=== PATIENT | male | born 1945 ===

== ENCOUNTER 2025-08-04 12:58 | Emergency (ER) | payer OTHER, SELFPAY ==
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
--- NOTE | ~2025-08-04 | CT_ITS ---
EXAMINATION: CT CERVICAL SPINE WITHOUT IV CONTRAST CLINICAL INFORMATION: Fall COMPARISON: None available. TECHNIQUE: CT of the cervical spine was obtained without administration of intravenous contrast. Images were reconstructed in axial, sagittal and coronal planes. This CT examination was performed using dose optimization techniques as appropriate, variously including the following: *Automated exposure control *Adjustment of mA and/or kV according to patient size (this includes techniques or standardized protocols for targeted exams where dose is matched to indication/reason for exam; i.e. extremities or head) *Use of iterative reconstruction technique FINDINGS: Motion limits evaluation of the soft tissues anterior of the cervical spine. Alignment: Straightening of the cervical spine with ossification of the posterior longitudinal ligament and bridging anterior marginal osteophytes at multiple levels. Vertebrae: No compression fracture. Disc spaces: Calcification of multiple intervertebral discs from C3-C4 down to C6-C7 level. Craniovertebral junction: Alignment is normal. No fracture. Soft tissues: Posterior paraspinal soft tissues are unremarkable. 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 CT/CT cervical spine wo IV con IMPRESSION: No acute fracture or subluxation. Electronically signed by: Miguel Angel Golden MD 08/04/2025 03:06 PM [facility]
--- NOTE | ~2025-08-04 | XR_ITS ---
EXAMINATION: XR PELVIS CLINICAL INFORMATION: fall COMPARISON: None available. TECHNIQUE: AP view of the pelvis. FINDINGS: Solitary AP view of the pelvis demonstrates no definitive fracture or dislocation. There is normal alignment of both hip joints. Mild degenerative changes in both hip joints are present with superolateral acetabular spurring. The trochanters appear intact with mild enthesopathic spurring. The pubic rami and symphysis appear intact. The sacral arches appear intact. Degenerative changes of both SI joints are present. There are degenerative changes in the lower lumbar spine with associated mild levoconvex scoliosis. Soft tissues appear normal aside from diffuse vascular calcifications. XR/XR pelvis 1-2V IMPRESSION: 1. No definite bony fracture or dislocation. 2. Diffuse vascular calcifications. Electronically signed by: Jeevan Martin MD 08/04/2025 05:03 PM [facility] ARCEO
--- NOTE | ~2025-08-04 | XR_ITS ---
EXAMINATION: XR FEMUR, RIGHT CLINICAL INFORMATION: fall COMPARISON: None available. TECHNIQUE: AP and lateral views of the right femur were obtained. FINDINGS: No definite fracture, dislocation, or suspicious bone lesion. Mild degenerative changes present in the right hip joint and right knee joint. There is no significant knee joint effusion on the lateral projection. Soft tissues demonstrate diffuse vascular calcifications. XR/XR femur RT 2V IMPRESSION: 1. No acute bony fracture or dislocation. 2. Diffuse vascular calcifications. Electronically signed by: Jeevan Martin MD 08/04/2025 05:08 PM [facility]
--- NOTE | ~2025-08-04 | CT_ITS ---
EXAMINATION: CT HEAD WITHOUT IV CONTRAST HISTORY: fall. TECHNIQUE: Unenhanced helical CT of the head was performed per standard departmental protocol. Coronal and sagittal reformats of the head were also evaluated. One or more of the following techniques was used for dose reduction: Automated exposure control, adjustment of the mA and/or kV according to patient size, use of iterative reconstruction technique. DLP: 663 mGy-cm COMPARISON: There are no prior studies available for comparison. FINDINGS: BRAIN: There is diffuse prominence of the ventricular system and cortical sulci, consistent with atrophy. Periventricular and subcortical white matter hypodensities are noted which are nonspecific, but often seen in the setting of small vessel ischemic disease. There is no mass effect or midline shift. No intra- or extra-axial fluid collections are identified. SINUSES: The visualized paranasal sinuses are clear. The mastoid air cells and middle ear cavities are well pneumatized. ORBITS: The visualized orbits are unremarkable. BONES/SOFT TISSUES: The extracranial soft tissues are unremarkable. The calvarium is intact. No suspicious lytic or sclerotic lesions. CT/CT head/brain wo IV con IMPRESSION: No acute intracranial abnormality. Electronically signed by: Xander Blankenship MD 08/04/2025 02:59 PM [facility]
--- NOTE | 2025-08-04 13:05 | ECG_ITS ---
Test Reason : fall Blood Pressure : */* mmHG Vent. Rate : 104 BPM Atrial Rate : 104 BPM P-R Int : 158 ms QRS Dur : 78 ms QT Int : 336 ms P-R-T Axes : 55 52 39 degrees QTcB Int : 441 ms Sinus tachycardia Otherwise normal ECG No previous ECGs available Referred By: Generic ED Physician Electronically Signed By: RYLIE BARRAZA
[2025-08-04 13:14] VITALS: BP 106/80; BP 110/76; PULSE 112; PULSE 98; RESP 18; TEMP 36.6; O2SAT 96; O2SAT 98; BMI 28.3
--- NOTE | 2025-08-04 13:14 | ED_ITS ---
HPI - General Adult General Chief complaint: Fall Stated complaint: fall, no loc/head strike/thinners Time Seen by Provider: 08/04/25 13:07 Source: patient, family and EMS Mode of arrival: ambulatory Limitations: no limitations History of Present Illness ED Provider: ROSEMARIE VILLALTA PA-C HPI narrative: 79 year old male with pmhx significant for DM presents to the ED today via EMS for evaluation s/p unwitnessed fall at his daycare facility today. Family member (nephew) at bedside to translate. Per staff at facility, patient fell back into his chair while attempting to stand out of his chair, when the chair slid out from under him, causing him to fall backward. Staff heard him fall and entered the room immediately. Patient denied head strike/LOC however per protocol, was sent to the ED by the facility. He is not on anticoagulation. Patient endorses right thigh pain x1 week, following a previous fall. He denies any other complaints. Denies any symptoms preceding the fall. His area plant manager at bedside states that he is currently being worked up for Parkinsons by his PCP. He has a / clinical care coordinator and has PT come to his home. He currently ambulates with a walker. Related Data Allergies Allergy/AdvReac Type Severity Reaction Status Date / Time No Known Allergies Allergy Verified 08/04/25 13:16 Review of Systems 2 Review of Systems: Yes all other systems are reviewed and are negative PMFSH Past Medical History Attestation statement: The following information was validated with the patient. Source: old records reviewed and nursing notes reviewed Physical Exam ED Vital Signs: Vital Signs - 24 hr 08/04/25 17:22 08/04/25 19:28 Temperature 97.8 F 97.8 F Pulse Rate 98 98 Respiratory Rate 16 16 Blood Pressure 123/64 123/64 Pulse Oximetry 98 98 Oxygen Delivery Method Room Air Room Air BMI result Body Mass Index 28.3 vital signs stable General: Well appearing, in no acute distress. Skin: Warm, dry, intact. No rashes or lesions. Head: Normocephalic, atraumatic. EENT: Hearing is intact b/l. Conjunctiva clear. Sclera is anicteric. PERRLA. EOM intact. Moist mucous membranes.? Neck: Supple without LAD Cardiac: Chest wall symmetric. RRR Lungs: Normal respiratory effort without accessory muscle use. CTA bilaterally Abdomen: Soft, non-tender, non-distended. No rebound tenderness or guarding. Positive BS x4. Back: No midline spinous or paraspinal tenderness. No step off deformity. Ext: Upper and lower extremities atraumatic, without tenderness, deformity, swelling or erythema. Full ROM throughout. Neuro: AOx3. Normal speech. Strength 4/5 intact throughout. No saddle anesthesia. Sensation intact to light touch. NV intact distally. Ambulating with slow but steady gait. Course Course Course Narrative: CBC without leukocytosis or left shift. Normocytic anemia, H&H above transfusion threshold. No priors to compare to. Chemistry showing slight hypomagnesemia to 1.5, normal potassium. Repletion ordered. No other acute electrolyte abnormalities requiring intervention. Random glucose 132, no anion gap. Patient appears to be slightly dehydrated, 1 L of fluids ordered. Liver function WNL. Urine without infection. CT head/C-spine unremarkable. X-ray right femur/pelvis without fracture. > discussed all workup results with patient and family at bedside. Offered PT/case management however patient has family caring for him around the clock at home, they are declining that at this time. They will be following with up with primary care doctor for further workup regarding possible Parkinson's. Patient has remained stable throughout ED visit today. Discussed worrisome signs and symptoms and when to return to the ED. All questions answered at this time. Patient and family are agreeable with disposition and patient is stable for discharge. Medications Administered Discontinued Medications Generic Name Dose Route Start Last Admin Trade Name Freq PRN Reason Stop Dose Admin Magnesium Sulfate 2 gm in 50 mls @ 25 mls/hr 08/04/25 16:08 08/04/25 18:36 Magnesium Sulfate/H2o IV 08/04/25 18:07 Infused ONCE ONE Infusion Sodium Chloride 1,000 mls @ 999 mls/hr 08/04/25 16:15 08/04/25 18:13 Ns IV 08/04/25 17:15 Infused .Q1H1M GABBY Infusion Medical Decision Making Medical Decision Making [facility] Narrative: 79 year old male with pmhx significant for DM presents to the ED today via EMS for evaluation s/p unwitnessed fall at his daycare facility today. vitals are stable, he is well appearing in NAD. exam is benign. no signs of trauma. Differential diagnosis includes anemia, electrolyte abnormality, dehydration, unsteady gait/balance, UTI, fracture, intracranial bleed Plan for labs, ekg, UA, imaging, and re-evaluation. Differential Diagnosis Differential Diagnoses: The differential diagnosis associated with the presentation includes as above. Admission/Observation not indicated. Lab Data MDM Lab Attestation statement: I reviewed the patient's lab results. as above. 08/04/25 15:35 08/04/25 15:35 Labs: Lab Results 08/04/25 08/04/25 Range/Units 15:35 18:10 WBC 10.1 (4.8-10.8) X10*3/uL RBC 4.60 (4.60-5.80) X10*6/uL Hgb 12.9 L (14.0-18.0) g/dl Hct 39.9 L (42.0-52.0) % MCV 86.7 (80.0-98.0) fL MCH 28.0 (27.0-33.0) pg MCHC 32.3 (31.0-36.0) g/dl RDW 13.9 (11.0-16.0) % Plt Count 264 (160-400) X10*3/uL MPV 9.7 (9.4-12.4) fL Immature Gran % (Auto) 0.3 (0.0-0.4) % Neut % (Auto) 63.9 (45-73) % Lymph % (Auto) 24.5 (20-40) % [place] % (Auto) 9.6 (2-11) % Eos % (Auto) 1.2 (0-4) % Baso % (Auto) 0.5 (0-2) % Lymph # (Auto) 2.5 (1.2-4.9) X10*3/uL [place] # (Auto) 1.0 (0.1-1.2) X10*3/uL Eos # (Auto) 0.1 (0.0-0.4) X10*3/uL Baso # (Auto) 0.1 (0.0-0.2) X10*3/uL Abs Immat Gran (auto) 0.03 (0.00-0.03) X10*3/uL Absolute Neuts (auto) 6.5 (2.0-8.3) x10*3/uL Absolute Nucleated RBC 0.000 (0.0-0.012) X10*3/uL Nucleated RBC % (auto) 0.0 (0.0-0.2) /100WBC Sodium 144 (135-145) mmol/L Potassium 3.7 (3.3-5.1) mmol/L Chloride 107 (96-108) mmol/L Carbon Dioxide 24 (22-29) mmol/L Anion Gap 17 (12-20) BUN 17 H (9-16) mg/dL Creatinine 0.98 (0.5-1.4) mg/dL Estim Creat Clear Calc 47.0 Estimated GFR > 60 Random Glucose 132 H (60-115) mg/dL Calcium 9.2 (8.4-10.2) mg/dL Magnesium 1.5 L (1.6-2.6) mg/dL Total Bilirubin 0.3 (0.0-1.0) mg/dL AST 51 H (5-37) U/L ALT 35 (0-40) U/L Alkaline Phosphatase 106 (39-117) U/L Total Protein 6.7 (6.5-8.0) g/dL Albumin 4.0 (3.5-5.0) g/dL Urine Color Dark Yellow Urine Appearance Clear Urine pH 6.0 (5.0-9.0) Ur Specific [place] >= 1.030 H (1.005-1.025) Urine Protein 30 (1+) H (Neg-Trace) mg/dL Urine Glucose (UA) Negative (Negative) mg/dL Urine Ketones 15 (Negative) mg/dL Urine Blood Negative (Negative) Urine Nitrite Negative (Negative) Ur Leukocyte Esterase Negative (Negative) Urine RBC 0-2 (0-2) /HPF Urine WBC 0-5 (0-5) /HPF Ur Squamous Epith Cells 0-2 (0-2) /HPF Urine Bacteria None Seen (None Seen) Hyaline Casts 0-2 (0-2) /LPF Independent Interpretation I performed an independent interpretation of an: EKG Interpretation: ekg showing sinus tachycaardia, no acute ischemic changes or st elevations ct head w/o bleed ct c spine without fracture xr right hip/ femur Radiology Impression Discussion of test interpretation with radiology: I have reviewed the radiologist's reading. Radiologist Impression: Procedure(s): XR femur RT 2V Accession Number(s): [id number] cc: Physician,Unknown ; Rosemarie Villalta~ Reason for Exam: fall EXAMINATION: XR FEMUR, RIGHT CLINICAL INFORMATION: fall COMPARISON: None available. TECHNIQUE: AP and lateral views of the right femur were obtained. FINDINGS: No definite fracture, dislocation, or suspicious bone lesion. Mild degenerative changes present in the right hip joint and right knee joint. There is no significant knee joint effusion on the lateral projection. Soft tissues demonstrate diffuse vascular calcifications. XR/XR femur RT 2V IMPRESSION: 1. No acute bony fracture or dislocation. 2. Diffuse vascular calcifications. Electronically signed by: Jeevan Martin MD 08/04/2025 05:08 PM EST RP Procedure(s): XR pelvis 1-2V Accession Number(s): [id number] cc: Physician,Unknown ; Rosemarie Villalta~ Reason for Exam: fall EXAMINATION: XR PELVIS CLINICAL INFORMATION: fall COMPARISON: None available. TECHNIQUE: AP view of the pelvis. FINDINGS: Solitary AP view of the pelvis demonstrates no definitive fracture or dislocation. There is normal alignment of both hip joints. Mild degenerative changes in both hip joints are present with superolateral acetabular spurring. The trochanters appear intact with mild enthesopathic spurring. The pubic rami and symphysis appear intact. The sacral arches appear intact. Degenerative changes of both SI joints are present. There are degenerative changes in the lower lumbar spine with associated mild levoconvex scoliosis. Soft tissues appear normal aside from diffuse vascular calcifications. XR/XR pelvis 1-2V IMPRESSION: 1. No definite bony fracture or dislocation. 2. Diffuse vascular calcifications. Electronically signed by: Jeevan Martin MD 08/04/2025 05:03 PM EST RP Procedure(s): CT head/brain wo IV con Accession Number(s): [id number] cc: Physician,Unknown ; Rosemarie Villalta~ Report Number: [id number]: Total DLP = 668.00 mGy-cm Reason for Exam: fall EXAMINATION: CT HEAD WITHOUT IV CONTRAST HISTORY: fall. TECHNIQUE: Unenhanced helical CT of the head was performed per standard departmental protocol. Coronal and sagittal reformats of the head were also evaluated. One or more of the following techniques was used for dose reduction: Automated exposure control, adjustment of the mA and/or kV according to patient size, use of iterative reconstruction technique. DLP: 663 mGy-cm COMPARISON: There are no prior studies available for comparison. FINDINGS: BRAIN: There is diffuse prominence of the ventricular system and cortical sulci, consistent with atrophy. Periventricular and subcortical white matter hypodensities are noted which are nonspecific, but often seen in the setting of small vessel ischemic disease. There is no mass effect or midline shift. No intra- or extra-axial fluid collections are identified. SINUSES: The visualized paranasal sinuses are clear. The mastoid air cells and middle ear cavities are well pneumatized. ORBITS: The visualized orbits are unremarkable. BONES/SOFT TISSUES: The extracranial soft tissues are unremarkable. The calvarium is intact. No suspicious lytic or sclerotic lesions. CT/CT head/brain wo IV con IMPRESSION: No acute intracranial abnormality. Electronically signed by: Xander Blankenship MD 08/04/2025 02:59 PM [facility] Procedure(s): CT cervical spine wo IV con Accession Number(s): [id number] cc: Physician,Unknown ; Rosemarie Villalta~ Report Number: [id number]: Total DLP = 268.00 mGy-cm Reason for Exam: fall EXAMINATION: CT CERVICAL SPINE WITHOUT IV CONTRAST CLINICAL INFORMATION: Fall COMPARISON: None available. TECHNIQUE: CT of the cervical spine was obtained without administration of intravenous contrast. Images were reconstructed in axial, sagittal and coronal planes. This CT examination was performed using dose optimization techniques as appropriate, variously including the following: *Automated exposure control *Adjustment of mA and/or kV according to patient size (this includes techniques or standardized protocols for targeted exams where dose is matched to indication/reason for exam; i.e. extremities or head) *Use of iterative reconstruction technique FINDINGS: Motion limits evaluation of the soft tissues anterior of the cervical spine. Alignment: Straightening of the cervical spine with ossification of the posterior longitudinal ligament and bridging anterior marginal osteophytes at multiple levels. Vertebrae: No compression fracture. Disc spaces: Calcification of multiple intervertebral discs from C3-C4 down to C6-C7 level. Craniovertebral junction: Alignment is normal. No fracture. Soft tissues: Posterior paraspinal soft tissues are unremarkable. 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 CT/CT cervical spine wo IV con IMPRESSION: No acute fracture or subluxation. Electronically signed by: Miguel Angel Golden MD 08/04/2025 03:06 PM [facility] Independent Historian Clinical information obtained from an independent historian. History obtained from or confirmed by: EMS and Other (nephew) Prescription Management I considered prescription management with: Pain Medication Social Determinants Patient?s care significantly limited by Social Determinants of Health including: Other Social Determinant of Health Critical Care Time Critical Care Time Critical Care Time: No Discharge Plan Discharge Clinical Impression: Fall, Hypomagnesemia Patient Disposition: Home, Self-Care Instructions: Hypomagnesemia (ED), Fall Prevention (ED) Additional Instructions: You were evaluated in the ED today following a fall. The CT scan of your head/neck are normal. The xray of your right thigh/hip are normal. Your blood work shows that you are slightly dehydrated with a low magnesium level. You were treated with IV fluids and magnesium today. Please follow up with your PCP. Return with any new or worsening symptoms. In the case of an emergency call 911. Referrals: Physician,Unknown J [Primary Care Provider, Medical] Interventions: ED Discharge Assessment Last Done: 08/04/25 19:28 Discharge Date/Time: 08/04/25 19:28 Print Language: Maltese
--- OUTSIDE RECORDS SUMMARY | 2025-08-04 14:10 | XMS_ITS | Data Portability ---
Author Organization [facility] Address [address] [place] [address] Care Team Providers Care Piercing Specialist Name Role Phone HIM CCA OTHER Assessment Encounter Date Assessment Date Assessment LastModified by Organization Details LastModified Time 12/18/2022 12/18/2022 As noted, we trixie e called to see this patient regarding concerns of elevated glucose and fatigue. Evaluation in the field was performed by my novelty maker colleague, as noted above, I provided real-time direction and supervision for this visit. The evaluation revealed glusoce of 373. Pt awake and alert Impression: 76 YOM with DM II on metformin with increased fatigue and elevated glucose. Plan: Attempt IVF and repeat glucose Disposition: We discussed the situation and I recommended referral to the emergency department. This was based on glucose continuing to be elevated at 362 following IVF, pt jackie needs to start on long acting insulin and need further evaluation . [email or web address] Not available 12/18/2022 14:11:26 02/02/2023 02/02/2023 I have reviewed and agree with the assessment and plan as documented by the novelty maker. I provided real-time medical direction for this encounter and was immediately available to provide additional phone-based assistance as needed. 77M with 2 days of intermittent fever/chills, new onset RUQ pain. Patient appears uncomfortable, non verbal at baseline and difficult to obtain accurate information. Vitals reveal fever, tachycardia. Differential includes appendicitis, intraabdominal process, pyelonephritis. Pt requires emergency department evaluation and management. Discussion with patient and ELECTRICAL EQUIPMENT TECHNICIAN who agree with the plan for transfer. [email or web address] Not available 02/02/2023 12:00:51 02/16/2023 02/16/2023 I provided real -time medical direction via phone for this encounter, and was available for additional phone based assistance as needed. I have reviewed and agree with the Assessment and Plan as documented by the Babbitt Spinner. Patient / healthcare economics consultant given the opportunity to ask questions. [email or web address] Not available 02/16/2023 14:04:03 Plan of Treatment Reminders Order Date Submit Date Provider Last Modified By Organization Details Last Modified Time Details Appointments None recorded. Lab BMP, serum or plasma 2022 023 [email or web address] 0 [facility], [address] [place] [address], [address] [place] [address] 3 15:15:37 rapid SARS CoV 2 Ag, QL IA, respiratory specimen 2022 023 [email or web address] 0 [facility], [address] [place] [address], [address] [place] [address] 3 15:15:37 rapid flu (A+B) 2022 023 [email or web address] 0 [facility], [address] [place] [address], [address] [place] [address] 3 15:15:37 Referral None recorded. Procedures None recorded. Surgeries None recorded. Imaging None recorded. Medication Orders None recorded. Patient TargetsNo targets recorded. Patient Instructions Encounter Date Encounter Id Patient Instructions Last Modified By Organization Details Last Modified Time 02/16/2023 [id number] orthostatic vitals* - see VS section [email or web address] Not available 02/16/2023 15:15:37 Reason for Referral None Reported. Results Created Date Observation Date Name Description Value Unit Range Abnormal Flag Note LastModifiedBy Organization Detail LastModifiedTime 02/17/2002/16/2023 BMP, serum or plasm a BUN 15 Not Available Main - [facility] [address], [address] [place] [address] 02/16/2023 14:14:02/17/2002/16/2023 BMP, serum or plasm a Ca I raquel 1.12 Not Available Main - [facility] ed [address] [place] [address], [address] [place] [address] 02/16/2023 14:14:02/17/2002/16/2023 BMP, serum or plasm a CI- 99 Not Available Main - [facility] [address], [address] [place] [address] 02/16/2023 14:14:02/17/20 23 02/16/2023 BMP, serum or plasm a CRE 0.6 Not Available Main - [facility] [address], [id number] 02/16/2023 14:14:02/17/20 23 02/16/2023 BMP, serum or plasm a GLU 315 Not Available Main - [facility] [address], [address] [place] [address] 02/16/2023 14:14:02/17/20 23 02/16/2023 BMP, serum or plasm a K+ 4.2 Not Available Main - [facility] [address], [address] [place] [address] 02/16/2023 14:14:02/17/2002/16/2023 BMP, serum or plasm a Na+ 137 Not Available Main - [facility] [address], [address] [place] [address] 02/16/2023 14:14:02/17/20 23 02/16/2023 BMP, serum or plasm a tCO2 25 Not Available Main - [facility] [address], [address] [place] [address] 02/16/2023 14:14:02/17/20 23 02/16/2023 rapid flu (A+B) Flu negati ve Not Available Main - [facility] ed [address] [place] [address], [address] [place] [address] 02/16/2023 14:14:26 02/17/2002/16/2023 rapid SARS CoV 2 Ag, QL IA, respi rator y speci men rapid SARS CoV 2 Ag, QL IA, respiratory specimen negati ve Not Available Main - [facility] ed [address] [place] [address], [address] [place] [address] 02/16/2023 14:14:19 02/17/2002/16/2023 progr ess disch arge summa ry* No observ ation record ed. [email or web address] Not Available 2022 15:36:15 Result Notes None recorded. Medical Equipment None Reported. Allergies No known drug allergies Medications Name Sig Start Date Stop Date Status Note LastModified by Organization Details LastModified Time quetiapine 25 mg tablet active Not Available Not Available No t Available pioglitazone 15 mg tablet active Not Available Not Available No t Available acetaminophen 325 mg tablet active Not Available Not Availabl e Not Available hydrocodone 5 mg-acetaminophe n 325 mg tablet active Not Available Not Availa ble Not Available FreeStyle Lancets 28 gauge active Not Available Not Available Not Available omeprazole 40 mg capsule,delayed release active Not Available Not Available Not Available aspirin 81 mg tablet,delayed release active Not Available Not Available Not Available simvastatin 40 mg tablet active Not Available Not Available No t Available ketorolac 0.5 % eye drops active Not Available Not Available No t Available meloxicam 7.5 mg tablet active Not Available Not Available No t Available tamsulosin 0.4 mg capsule active Not Available Not Available N ot Available mirtazapine 30 mg tablet active Not Available Not Available No t Available metformin 1,000 mg tablet active Not Available Not Available No t Available lidocaine 5 % topical patch active Not Available Not Availabl e Not Available bupropion HCl 75 mg tablet active Not Available Not Available Not Available lisinopril 5 mg tablet active Not Available Not Available Not Available mirtazapine 15 mg tablet active Not Available Not Available No t Available gabapentin 100 mg capsule active Not Available Not Available N ot Available celecoxib 100 mg capsule active Not Available Not Available N ot Available fluticasone propionate 50 mcg/actuation nasal spray,suspensio n active Not Available Not Available Not Available finasteride 5 mg tablet active Not Available Not Available No t Available duloxetine 30 mg capsule,delayed release active Not Available Not Available Not Available chlorhexidine gluconate 0.12 % mouthwash active Not Available Not Available Not Available Januvia 50 mg tablet active Not Available Not Available Not Available FreeStyle Lite Strips active Not Available Not Available Not Available diclofenac 1 % topical gel active Not Available Not Available Not Available Thera-M 9 mg iron-400 mcg tablet active Not Available Not Available Not Available Vitals Date Recorded Body temperature Body weight Respiratory rate Heart rate Oxygen saturation Heart rate Oxygen saturation Body weight Body temperature Respiratory rate Systolic And Diastolic Systolic And Diastolic Provider Name and Address Organization Details Last Updated DateTime 3 98.5 [degF] 40538.8 g 14 /min 109 /min 98 % 109 /min 98 % 51741.8 g 98.5 [degF] 14 /min 115/69 mm[Hg] 115/69 mm[Hg] Not Available [facility] - production 3 13:32:13 Date Recorded Heart rate Respiratory rate Oxygen saturation Body temperature Systolic And Diastolic Provider Name and Address Organization Details Last Updated DateTime 5 90 /min 14 /min 99 % 97.5 [degF] 112/72 mm[Hg] Not Available [facility] - production 5 19:45:39 Date Recorded Body temperature Heart rate Respiratory rate Body weight Oxygen saturation Systolic And Diastolic Provider Name and Address Organization Details Last Updated DateTime 3 100.2 [degF] 134 /min 18 /min 63618.8 8 g 96 % 124/76 mm[Hg] Not Available [facility] - production 3 11:57:39 Date Recorded Body temperature Oxygen saturation Heart rate Respiratory rate Body weight Systolic And Diastolic Provider Name and Address Organization Details Last Updated DateTime 3 98.4 [degF] 100 % 100 /min 16 /min 58545.9 6 g 128/79 mm[Hg] Not Available [facility] - production 3 12:16:43 Social History None recorded. Functional Status None recorded. Mental Status None recorded. Family History Nothing Reported. Medical History No medical history recorded. Past Encounters Encounter ID Performer Location Encounter Start Date Encounter Closed Date Diagnosis/Indication Diagnosis SNOMED-CT Code Diagnosis ICD10 Code Diagnosis IMO Codes Diagnosis Note [id number] Arnie Jeff MD [facility] - [facility] [address] [place] [address] [id number] 12/18/2022 13:25:06 12/23/2022 10:41:37 Hyperglycemia 37942217 R73.9 [id number] Natalie Aiken MD Main - [facility] [address] [place] [address] [phone] 02/02/2023 11:57:37 02/02/2023 19:18:19 Abdominal pain 17136408 R10.9 Fever 409333743 R50.9 [id number] Teetee Jacob MD Main - [facility] [address] [place] [address] [phone] 02/16/2023 12:16:37 02/17/2023 10:23:13 Altered mental status 282885920 R41.82 ? hepatic encephalop athy with abdominal distention and dehydratio n(clinical ly w/ tenting/ borderline orthostasi s/ hyperglyce whitney and hi h/h)- medic able to draw bmp- does not have ability to check LFTs and unable to establish iv ( clinically needs judicious ivf)and needs imaging to r/o bowel obstructio n vs other acute intra-abdo nani process- advised of need to send to the ER for evaluation and treatment. Patient is agreeable. Report called to [facility] ER expect line- informed of H & P-labs/ neg covid and flu [id number] LESLEE ESPOSITO MD Main - [facility] [address] [place] [address] [id number] 01/28/2025 19:45:37 01/30/2025 19:50:37 History of fall 509075448 Z91.81 [id number] Evaluation in the field was performed by my novelty maker colleague, as noted above, I provided real-time direction and supervisio n for this visit. The evaluation revealed 79-year-ol d male with a history of hypertensi on, type II diabetes mellitus, hyperlipid emia, and dementia who presents after a mechanical fall ~2 hours prior to evaluation . Per report, he tripped over boxes on the floor and struck his head against a drywall (photo available) . The fall was unwitnesse d, so loss of consciousn ess is unclear. Not on anticoagul ation other than baby ASAThe visiting nurse was informed by the patient, and they recommende d ED evaluation , but the patient adamantly refused. His nephew reports that the patient has frequent falls, often due to unsteadine ss and tripping, and notes that it is typical for him to forget such events shortly afterward. Currently, the patient endorses mild right shoulder pain (for which he has taken Tylenol) and mild headache, but denies chest pain, shortness of breath, dizziness, nausea, vomiting, or diarrhea. Vital Signs: BP 112/72 , HR 90 bpm , RR 14, SpO 99% on room air at rest, Temperatur e 97.5 FExam: General: Awake, alert to baseline, no acute distress, speaking full sentences. Neurologic al: Nonfocal exam, no acute deficits; baseline slow but steady gait per nephew.Pup ils: 3 mm, equal, PERRLA.Hea d/Neck: No external signs of trauma.Car diopulmona ry: Lungs clear bilaterall y; heart regular.Mu sculoskele kate: Full range of motion of all extremitie s; mild right shoulder pain on rotation but no deformity or swelling.A bdomen: Soft, nontender, nondistend ed.Extremi ties: No lower extremity edema; normal skin temperatur e and peripheral pulses.All ergies reviewed. Impression :Mechanica l fall with head strike and right shoulder pain; mild headache; no current signs of significan t head injury or shoulder fracture/d islocation . Plan:Recom mend rest, ice, and acetaminop hen for right shoulder pain as needed.Giv en the patient's history and current presentati on, close home monitoring is appropriat e. The nephew, serving as the HCP and ELECTRICAL EQUIPMENT TECHNICIAN, has been instructed on observatio n protocols. He has been advised to wake the patient once during the night to ensure he is responsive and without new symptoms.N ephew was advised to monitor the patient closely for the first 72 hours post-fall, as this is the critical period for potential complicati onsEnsure the living area is free from tripping hazards, especially in commonly used pathways, to prevent future falls.Red flags discussed with the patient and nephew,Str ongly encouraged ED evaluation given head strike, but patient refused; documented refusal. Primary care, consider__ _ Dispositio n: We discussed the diagnostic uncertaint y of home visits and the risk associated with this. In this case, the patient and I felt this to be an acceptable and reasonable amount of risk given the benefit of avoiding an ED visit. We discussed the need to seek care urgently/e mergently in the setting of any new or worsening serious symptoms, particular ly including: worsening headache, confusion, difficulty waking up, repeated vomiting, slurred speech, weakness or numbness , increasing shoulder pain, inability to move the arm, visible deformity, severe swelling or bruising Health Concerns Section Related Observation LastModified by Organization Detai ls LastModified Time None Recorded Concern Status LastModified by Organization Details LastModified Time None Recorded Advance Directives Directive None Recorded Payers Insurance Date Sequence Insurance Name Policy Number Policy Kumar Covered Member ID Kumar Member ID Guarantor Name 02/02/2023 1 [facility] - DOS PRIOR TO 2022 - DUAL ELIGIBLE (MEDICARE REPLACEMENT/ADV ANTAGE - HMO) Kole Paz [id number] Kole Paz 01/28/2025 1 [facility] - DOS ON OR AFTER 2022 - DUAL ELIGIBLE - ALF OPTIONS AND ONE CARE (MEDICARE REPLACEMENT/ADV ANTAGE - HMO) Kole Paz [id number] Kole Paz Notes Date Note Type Note Provider Name and Address Organization Details Recorded Time 12/18/2022 text/html CRC Nursing Assessment: Reason For Request: ELECTRICAL EQUIPMENT TECHNICIAN reporting pt's sugar is high. ELECTRICAL EQUIPMENT TECHNICIAN reporting pt is stating pain in his left hip. ELECTRICAL EQUIPMENT TECHNICIAN states a visiting nurse visits the pt every Thursday to change out the members meds with equipment. Sugar yesterday was 344> todays reading is 310. ELECTRICAL EQUIPMENT TECHNICIAN reports pt has been eating and drinking fluids but that he is just wanting to sit on his recliner and sleep. Chief Complaints: Diabetes Related, Weakness/Lethargy PMH: Diabetes Allergies: No Known Pain Assessment: Level 8 out of 10 Comments: Called with mill beam fitter ELECTRICAL EQUIPMENT TECHNICIAN stated that member fell in August and has had hip pain since then. Member did not go to the ER for imaging , taking celecoxib 100 mg , which is not helping the pain. Members BS , did not have the machine , but just got the machine yesterday , Member takes medication for BS , stating nurse puts medicine in machine , medminer so unsure what he gets Member very tired Verified identity by MARLEE Jeff MD [address], [place], [address], [email or web address] 12/18/2022 14:12:16 02/02/2023 text/html CRC Nursing Assessment: Chief Complaints: Nausea/Vomiting PMH: Diabetes, Hypertension Allergies: No Known Comments: ELECTRICAL EQUIPMENT TECHNICIAN calling on behalf of member with complaints of nausea/vomiting x 2 days. fever/chills resolved. No OTC's FS -252 Discuss if symptoms progress to seek emergent care-verbalize understanding. via [place] int. # [id number] Verify name/- Natalie Aiken MD [address], [place], [address], [email or web address] 02/02/2023 12:01:01 02/16/2023 text/html ROS as noted in the HPI CRC Nursing Assessment: Reason For Request: Weakness/ N/v Patient Reports: Nausea with or without vomiting; Inability to tolerate foods, fluids or daily medicationsDenies: Vague abdominal pain greater than 24 hours Chief Complaints: Weakness/Lethargy, Nausea/VomitingPMH: Diabetes, HypertensionAllergi es: UnknownComments: ELECTRICAL EQUIPMENT TECHNICIAN calling for member with N/v/ and dizziness since last . Member feeling warm, no temp and no chills. Member has not been eating much. ELECTRICAL EQUIPMENT TECHNICIAN is unsure if he has had a BM . PEr ELECTRICAL EQUIPMENT TECHNICIAN he looks yellow and had sx on his liver february 09 Member c/o SOB Verified identity by ................... ................... ................... ................... ................... ................... ................... ........ Babbitt Spinner Note From Calderon Still: PATIENT REQUESTING VISIT DUE TO N/V WEAKNESS. UPON ARRIVAL PT FOUND LAYING DOWN IN BED WITH ELECTRICAL EQUIPMENT TECHNICIAN IN THE HOME. ELECTRICAL EQUIPMENT TECHNICIAN WAS ON THE PHONE WITH FAMILY WHO STATE THE PT HAS NOT BEEN EATING OR DRINKING WELL HE SHOULD AND THE PT HAS BEEN WEAK AND SLEEPING ALOT. FAMILY ALSO STATES THE PT SEEMS MILDLY ALTERED AND NOT ACTING NORMALLY. PT HAD LIVER SURGERY ON 02/09/23 UNKNOWN WHAT KIND OF SURGERY. PT UNABLE TO RECALL LAST BM. PT DENIES F/D/SOB/CP AT THIS TIME. ABD IS SOFT AND DISTENDED WITH TENDERNESS IN RUQ. WHEN PT WENT FROM LAYING DOWN TO SITTING UP WHAT APPEARED TO BE A HERNIA WAS VISIBLE ABOVE THE UMBILICUS ABOUT 3 INCHES LONG, SOFT TO THE TOUCH. UNABLE TO AUSCULTATE BOWEL SOUNDS. PT'S SKIN TURGOR SHOWED MILD TENTING BUT NORMAL IN COLOR. POC BLOOD WORK PERFORMED, PT HAS POOR IV ACCESS BUT ABLE TO USE A 23G BUTTERFLY TO DRAW BLOOD. POC BLOODWORK SUBMITTED TO [facility], SEE ATTACHED. [facility] CONTACTED, [facility] ASKED FOR ORTHO VITAL SIGNS, NO MAJOR CHANGES IN VITALS BETWEEN LAYING DOWN, SITTING AND STANDING. [facility] RECOMMENDS TRANSPORT TO THE HOSPITAL. 911 CALLED, [facility] ARRIVED ON SCENE, CARE AND REPORT GIVEN TO [facility], NO ALS INTERVENTIONS INDICATED FOR TRANSPORT, PT TRANSPORTED BLS. ................... ................... ................... ................... ................... ................... ................... ........ Disposition: FulfilledSEGMD: As above- patient has no d/c summary from recent hospitalization-uns ure of what procedure performed- was sent to the ED by our team with fever/ weakness/n/v 02/02/23; d/c 02/09/23- no real vomiting per healthcare economics consultant- just not eating or drinking- unsure of last BM- ELECTRICAL EQUIPMENT TECHNICIAN has not seen any and patient cannot remember. Teetee Jacob MD [address] [place] [address],[address], [place], [address], [email or web address] 02/16/2023 15:16:05 01/28/2025 text/html ROS as noted in the [facility] CRC Nurse Triage Notes (Bob Francisco): Reason For Request: fallDenies: Falls with head strike and LOC Falls from a standing position, no LOC, patient is amnestic to the event Falls with isolated injury and deformity noted to limb Falls with inability to move post fall Cool extremities after fall or injury Chief Complaints: Falls, Extremity PainPMH: Hypertension, Diabetes Mellitus Type 2PMH Reviewed at 01/28/2025 - 18:55Allergies Reviewed at 01/28/2025 - 18:55Comments: 79 y.o male complains of Falls, Extremity PainPatient's VNA calling reporting patient had a fall and is now complaining of R shoulder pain. Patient reportedly with excruciating R shoulder pain and inability to move his R shoulder. Patient adamantly refusing the ER for VNA and continues to refuse ER at time of call. VNA reports she spoke to patient's health care proxy who recommended VNA call [facility] for a visit. Patient with head strike, dent reportedly in wall from fall. Patient complaining of mild headache, patient does take aspirin. VNA reporting no obvious signs of trauma, no deformity to arm, all extremities are warm. Patient with no obvious bruising noted to head, pt not complaining of dizziness. I provided information on the mobile health provider response time and advised the patient and/or caregiver to monitor reported signs and symptoms. I discussed the warning signs of when to seek emergency care -Jamil Francisco RN ................... ................... ................... ................... ................... ................... ................... ........ Babbitt Spinner Note From Eris Guerrero: This visit is for an 79-year-old male with a history including but not limited to HTN, DM type II, HLD, dementia. Patient's nephew/healthcare proxy requested the visit because the patient fell approximately two hours ago in his home striking his head on the wall which left a hole in the drywall. Nephew says it's not uncommon for him to fall, he often becomes unsteady and tends to trip over things. Nephew says the VNA found him sitting in his chair that he told the VNA that he tripped over the boxes near his door and fell. Currently the patient does not remember falling but the nephew says that this lapse in memory is common for him. Patient endorses some mild right shoulder pain and states he already took Tylenol for it. Patient denies any chest pain, shortness of breath, headaches, dizziness, nausea, vomiting, diarrhea. Patient presents awake and alert to baseline, in no acute distress and speaking full sentences. His vital signs are reasonably stable and he is afebrile. Nonfocal neurological exam. Slow gait, steady, baseline per nephew. Pupils 3 mm +PERRLA. No signs of trauma to his head, face and neck. Patient has full range of motion of all extremities including the right shoulder, though he endorses some pain when rotating his right shoulder. Lungs are clear throughout auscultation. Abdomen is soft, nontender, nondistended. No lower extremity edema. We discussed the diagnostic uncertainty of home visits and the risk associated with this. In this case, the patient and I felt this to be an acceptable and reasonable amount of risk given the benefit of avoiding an ED visit. I advised the nephew that a CT scan at the hospital would be the only way to definitively rule out head trauma, nephew and patient declined ED. I recommend the nephew wake the patient between 2 AM and 3 AM tonight to make sure the patient is able to wake up fully to rule out a concussion. I instructed the nephew to present the patient to the emergency department for any new or worsening severe symptoms such as slurred speech, focal weakness, severe headache, unsteady gait, nausea/vomiting, altered mental status. The patient and his nephew were given the opportunity to ask questions and are agreeable to this plan. ................... ................... ................... ................... ................... ................... ................... ........ [facility] Consulted: Leslee Esposito ................... ................... ................... ................... ................... ................... ................... ........ Disposition: Fulfilled LESLEE ESPOSITO MD [address] [facility],[address], [place], [address], JOSELO DE LA TORRE 01/28/2025 20:38:45
--- OUTSIDE RECORDS SUMMARY | 2025-08-04 14:10 | XMS_ITS | Clinical Summary ---
Author Organization [facility] Address [address] [place] [address] Phone Care Team Providers Care Print Support Specialist Name Role Phone Tavon Churchill Primary Care Provider [phone] Allergies No known active allergies Medical History Medical History Date Comments Allergic rhinitis 08/10/2017 DX:Allergic rh initis Anxiety 08/10/2017 DX:Anxiety Arthralgia of multiple sites 08/28/2017 DX: Arthralgia of multiple sites Benign essential hypertension 08/10/2017 DX :Benign essential hypertension BPH (benign prostatic hyperplasia) 08/10/2017 DX:BPH (benign prostatic hyperplasia) Esophageal reflux 08/10/2017 DX:Esophageal reflux Hyperlipidemia 01/01/2018 DX:Hyperlipidemi a Insomnia 01/01/2018 DX:Insomnia Positive PPD 05/13/2018 DX:Positive PPD Type 2 diabetes mellitus wit hout complication 01/20/2018 DX:Type 2 diabetes mellitus without complication (HCC) Social History Tobacco Use Types Packs/Day Years Used Date Smoking Tobacco: Former Smokeless Tobacco: Never Alcohol Use Standard Drinks/Week Comments No 0 (1 standard drink = 0.6 oz pur e alcohol) Sex and Gender Information Value Date Recorded Sex Assigned at Male 11/07/2024 5:36 PM EST Legal Sex Male 5:37 AM EST Gender Identity Male 11/07/2024 5:36 PM EST Sexual Orientation Straight 11/07/2024 5: 36 PM EST Obstetrics History Last Filed Vital Signs Vital Sign Reading Time Taken Comments Blood Pressure 116/67 11/07/2024 2:34 PM EST Pulse 115 11/07/2024 2:34 PM EST Temperature 36.7 C (98.1 F) 11/07/2024 2:34 PM EST Respiratory Rate 18 11/07/2024 2:34 PM EST Oxygen Saturation 96% 11/07/2024 2:34 PM EST Inhaled Oxygen Concentration - - Weight 70.3 kg (155 lb) 11/07/2024 2:31 PM EST Height 165.1 cm (5' 5 ) 11/07/2024 2:31 PM EST Body Mass Index 25.79 11/07/2024 2:31 PM EST Plan of Treatment Health Maintenance Due Date Last Done Comments Diabetes: Annual GFR (Glomerular Filtration Rate) 1943 Diabetes: Annual Foot Exam 12/21/1953 Diabetes: Annual Retina Eye Exam 12/21/1953 DTaP,Tdap,and Td Vaccines (1 - Tdap) 12/21/1962 Pneumococcal Vaccine: 50+ Years (2 of 2 - PCV) 08/21/2010 08/21/2009 RSV Immunization Adult Patients (1 - 1-dose 75+ series) 12/21/2018 Cholesterol Screening (Lipid Panel) 08/10/2022 Falls Risk Assessment 08/10/2022 Medicare Annual Wellness Visit 08/10/2022 Social Influencers of Health Screening 08/10/2022 Diabetes: Annual Urine Albumin-Creatinine Ratio (uACR) 08/22/2022 Diabetes: Blood Sugar Contro l Test (HGBA1C) 08/22/2022 Hypertension/CHF/CAD Annual BMP Blood Test 08/22/2022 Zoster Vaccines (1 of 2) 03/08/2024 01/12/2024 Depression Screening 09/07/2024 COVID-19 Vaccine (3 - 2024-2 6 season) 2025 01/05/2021, 12/08/2020 Influenza Vaccine (#1) 2025 9, 06/30/2018, 06/05/2014 Varicella Vaccines Aged Out 01/12/2024 No longer eligible based on patient's age to complete this topic HIB Vaccines Aged Out No longer eligi ble based on patient's age to complete this topic HPV Vaccines Aged Out No longer eligi ble based on patient's age to complete this topic Hepatitis A Vaccines Aged Out No long er eligible based on patient's age to complete this topic Hepatitis B Vaccines Aged Out No long er eligible based on patient's age to complete this topic IPV Vaccines Aged Out No longer eligi ble based on patient's age to complete this topic MMR Vaccines Aged Out No longer eligi ble based on patient's age to complete this topic Meningococcal ACWY Vaccine Aged Out N o longer eligible based on patient's age to complete this topic Meningococcal B Vaccine Aged Out No l onger eligible based on patient's age to complete this topic RSV Immunization Patients Under 20 months Aged Out No longer eligible b ased on patient's age to complete this topic Insurance [facility] Member Subscriber Plan / Payer (Ef fective for All Dates) Name:Kole Paz Relation to Subscriber:Self Name:Kole Paz Payer ID:[id number] Group ID:Not on file Type:Not on file Address: [place] [address] [address] [id number] Advance Directives Documents on File Type Date Recorded Patient Director [employer] Expl anation Health Care Decision (hx) 11/20/2020 JOSE RODRIGUEZ DIRECTIVE Care Teams Print Support Specialist Relationship Specialty Start Date End Date Tavon Churchill [address] [place] [id number] PCP - General Physician Bottoming Room Inspector 11/07/24
[2025-08-04 15:46] LABS: MANUAL DIFF FLAG NO
[2025-08-04 16:01] LABS: Hematocrit 39.9 % (42.0-52.0); Hemoglobin 12.9 g/dl (14.0-18.0); Imm Gran Abs Auto 0.03 X10*3/uL (0.00-0.03); Imm Gran Pct Auto 0.3 % (0.0-0.4); Lymphocytes Absolute Auto 2.5 X10*3/uL (1.2-4.9); Mean Corpuscular HGB Conc 32.3 g/dl (31.0-36.0); Mean Corpuscular Hemoglobin 28.0 pg (27.0-33.0); Mean Corpuscular Volume 86.7 fL (80.0-98.0); NRBC Abs Auto 0.000 X10*3/uL (0.0-0.012); NRBC Pct Auto 0.0 /100WBC (0.0-0.2); Platelet Count 264 X10*3/uL (160-400); Red Blood Count 4.60 X10*6/uL (4.60-5.80); White Blood Count 10.1 X10*3/uL (4.8-10.8)
[2025-08-04 16:05] LABS: Alanine Aminotransferase 35 U/L (0-40); Albumin Level 4.0 g/dL (3.5-5.0); Alkaline Phosphatase 106 U/L (39-117); Anion Gap 17 (12-20); Aspartate Amino Transferase 51 U/L (5-37); Blood Urea Nitrogen 17 mg/dL (9-16); Calcium 9.2 mg/dL (8.4-10.2); Carbon Dioxide 24 mmol/L (22-29); Chloride 107 mmol/L (96-108); Creatinine Clr Calc Pharmacy 47.0; Estimated Glomerular Filt Rate > 60; Magnesium 1.5 mg/dL (1.6-2.6); Potassium 3.7 mmol/L (3.3-5.1); Sodium 144 mmol/L (135-145); Total Protein 6.7 g/dL (6.5-8.0)
[2025-08-04] MEDS: Magnesium Sulfate/H2O 2 GM/50 ML PIGGYBACK IV (16:27)
[2025-08-04 17:22] VITALS: BP 123/64; PULSE 98; RESP 16; TEMP 36.6; O2SAT 98
[2025-08-04 18:18] LABS: Appearance Urine Clear; Glucose Urine UA Negative (Negative); PH 6.0 (5.0-9.0); Specific Gravity - Urine >= 1.030 (1.005-1.025); UMIC TRIGGER UACC YES
[2025-08-04 19:28] VITALS: BP 123/64; PULSE 98; RESP 16; TEMP 36.6; O2SAT 98
== END 2025-08-04 19:28 | disposition home or self-care (01) ==
PROVIDERS: Physician Assistant Medical; Emergency Provider Emergency Medicine
DX: S39.93XA Unspecified injury of pelvis, initial encounter (principal); R51.9 Headache, unspecified; M54.2 Cervicalgia; M79.604 Pain in right leg; R11.0 Nausea; R00.0 Tachycardia, unspecified; W18.30XA Fall on same level, unspecified, initial encounter; Y93.9 Activity, unspecified; Y92.219 Unspecified school as the place of occurrence of the external cause; Y99.0 Civilian activity done for income or pay; Z79.899 Other long term (current) drug therapy
CPT/HCPCS: 36415; 70450; 72125; 72170; 73552; 80053; 81001; 83735; 85025; 93005; 96361; 96374; 99284; 99285; J3475

== ENCOUNTER → 2025-08-04 13:05 | Outpatient (BNV) | payer OTHER, SELFPAY | PROVIDERS: Emergency Provider Emergency Medicine; Visit Provider Internal Medicine | DX: R00.0 Tachycardia, unspecified (principal) | CPT/HCPCS: 93010 ==

== ENCOUNTER → 2025-08-04 14:18 | Outpatient (BNV) | payer OTHER, SELFPAY | PROVIDERS: Emergency Provider Emergency Medicine; Visit Provider Radiology Diagnostic Radiology | DX: Z04.3 Encounter for examination and observation following other accident (principal); I70.201 Unspecified atherosclerosis of native arteries of extremities, right leg | CPT/HCPCS: 70450; 72125; 72170; 73552 ==

== ENCOUNTER 2025-08-18 19:42 | Emergency (ER) | payer OTHER, SELFPAY ==
--- NOTE | ~2025-08-18 | CT_ITS ---
CLINICAL HISTORY: head strike, pain CT head without contrast Comparison: CT/SR - CT HEAD WITHOUT IV CONTRAST - 08/04/25 14:37 EST Findings: No intra-axial mass, midline shift, hydrocephalus, or acute hemorrhage. Diffuse volume loss. Periventricular and subcortical white matter hypoattenuation likely chronic small-vessel ischemic changes. Intracranial atherosclerosis. There is no sinus or mastoid fluid. No acute findings in the orbits. There is no acute fracture. IMPRESSION: 1. No acute intracranial findings. This document has been electronically signed by: Debbie Sarkra MD on 08/18/2025 22:05:18
--- NOTE | ~2025-08-18 | CT_ITS ---
CLINICAL HISTORY: head strike, pain CT cervical spine without contrast Comparison: None provided Findings: No acute fracture or dislocation. Partial fusion of the C3 through C7 vertebral bodies with associated straightening of the cervical spine. 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 No acute findings in the visualized brain. Soft tissues of the neck are normal. No consolidation or effusion at the lung apices. IMPRESSION: No acute fracture or dislocation. Chronic findings as above. This document has been electronically signed by: Debbie Sarkar MD on 08/18/2025 22:11:41
[2025-08-18 19:55] VITALS: BP 123/62; PULSE 115; RESP 18; TEMP 36.3; O2SAT 98
--- NOTE | 2025-08-18 19:59 | ED_ITS ---
HPI - General Adult General Chief complaint: Head Injury Stated complaint: Fell hit head bruised Time Seen by Provider: 08/18/25 22:26 History of Present Illness HPI narrative: Patient is an 79-year-old male had an accidental fall. Patient was walking. Hit the back of his head against a wooden rail at the bottom of the table. Is a red johan on his scalp. There is no laceration. Patient is not on blood thinners. Mental status was a little confused abdomen then improved. Now is b ack to baseline. Baseline patient is oriented times 1. Has no change in behavior has no focal weakness. Baseline walks with a cane. Patient is from home. Related Data Allergies Allergy/AdvReac Type Severity Reaction Status Date / Time No Known Allergies Allergy Verified 08/18/25 19:58 Review of Systems Review of Systems: Positive head injury Yes all other systems are reviewed and are negative [facility] Past Medical History Attestation statement: The following information was validated with the patient. Social History Social History Smoked in Last 30 Days: No Use of substances other than those prescribed or required for medical reasons: No Advance Directives: No Advance Directives Information Provided: Yes Physical Exam ED Exam Exam: Appearance: Alert. Oriented X1. No acute distress. Eyes: Pupils equal, round and reactive to light. ENT: Pharynx normal. Neck: Normal inspection. Neck supple. No lymph nodes noted. No crepitus CVS: Normal heart rate and rhythm. Pulses normal. Normal S1 and S2 Respiratory: No respiratory distress. Breath sounds normal. No Wheezing. No rales Abdomen: Soft and nontender. No rigidity. No distention. good BS x4 Skin: Skin warm and dry. Normal skin color. Normal skin turgor. Extremities: No lower extremity edema. Neurovascular intact to all extremities. No Lacerations. No Rash Neuro: Oriented X 1. No motor deficit. No sensory deficit. Moving all extermi ties. No slurred speech Vital Signs: Vital Signs - 24 hr 08/18/25 19:55 08/18/25 23:45 Temperature 97.4 F 97.7 F Pulse Rate 115 H 83 Respiratory Rate 18 16 Blood Pressure 123/62 131/78 Pulse Oximetry 98 97 Oxygen Delivery Method Room Air Room Air BMI result Body Mass Index 20.0 Course Course Course Narrative: Rapid medical examination performed in triage by Huyen Matos PA-C: Patient is a 79 year old assigned male at presenting to the emergency department after a fall. Patient's family states the patient suffered a fall and struck his head and neck. Patient is not on any anti-coagulation medications. Detailed physical exam and review of systems are deferred to the credit risk management director. Imaging ordered. Patient placed back in the waiting room pending room availability and results. Medical Decision Making Medical Decision Making MDM Narrative: Awake alert oriented x1. Mental status is baseline. CT scan of the head by my interpretation is grossly negative. I reviewed radiology's interpretation CT head CT C-spine both negative. No distress the fall was mechanical patient is in stable condition will discharge home. Differential Diagnosis Differential Diagnoses: The differential diagnosis associated with the presentation includes Intracranial bleed fracture Admission/Observation Consideration of admission/observation: Escalation of care including admission/observation considered Independent Interpretation I performed an independent interpretation of an: CT Scan (CT head negative) Radiology Impression Discussion of test interpretation with radiology: I have reviewed the radiologist's reading. Chronic Conditions History of dementia Social Determinants Patient?s care significantly limited by Social Determinants of Health including: Problems related to primary support group Discharge Plan Discharge Clinical Impression: Closed head injury Patient Disposition: Home, Self-Care Instructions: Head Injury (DC) Referrals: PhysicianErika [Primary Care Provider, Medical] - 08/23/25 Print Language: Japanese
--- OUTSIDE RECORDS SUMMARY | 2025-08-18 22:35 | XMS_ITS | Data Portability ---
Author Organization [employer] Address [address] [place] [address] Care Team Providers Care Atmospheric Scientist Name Role Phone HIM CCA OTHER Assessment Encounter Date Assessment Date Assessment LastModified by Organization Details LastModified Time 12/18/2022 12/18/2022 As noted, we wer e called to see this patient regarding concerns of elevated glucose and fatigue. Evaluation in the field was performed by my weight and balance control agent colleague, as noted above, I provided real-time [...] assessment and plan as documented by the weight and balance control agent. I provided real-time medical direction for this [...] evaluation and management. Discussion with patient and DIABETES SOLUTIONS SPECIALIST who agree with the plan for transfer. paysola Not available 02/02/2023 12:00:51 02/16/2023 02/16/2023 I provided real -time medical direction via phone for this encounter, and was available for additional phone based assistance as needed. I have reviewed and agree with the Assessment and Plan as documented by the Administrative Operations Coordinator. Patient / care professionals given the opportunity to ask questions. [email or web address] Not available 02/16/2023 14:04:03 Plan of Treatment Reminders Order Date Submit Date Provider Last Modified By Organization Details Last Modified Time Details Appointments None recorded. Lab BMP, serum or plasma 2022 023 [email or web address] 0 [facility], [address] [place] [address], [address] [place] [address] 3 15:15:37 rapid SARS CoV 2 Ag, QL IA, respiratory specimen 2022 023 [email or web address] 0 [facility], [address] [place] [address], [address] [place] [address] 3 15:15:37 rapid flu (A+B) 2022 023 [email or web address] 0 [facility], [address] [place] [address], [address] [place] [address] 3 15:15:37 Referral None recorded. Procedures None recorded. Surgeries None recorded. Imaging None recorded. Medication Orders None recorded. Patient TargetsNo targets recorded. Patient Instructions Encounter Date Encounter Id Patient Instructions Last Modified By Organization Details Last Modified Time 02/16/2023 [id number] orthostatic vitals* - see VS section [email or web address] Not available 02/16/2023 15:15:37 Reason for Referral None Reported. Results Created Date Observation Date Name Description Value Unit Range Abnormal Flag Note LastModifiedBy Organization Detail LastModifiedTime 02/17/2002/16/2023 BMP, serum or plasm a BUN 15 Not Available Main - [facility] [address], [address] [place] [address] 02/16/2023 14:14:02/17/2002/16/2023 BMP, serum or plasm a Ca I raquel 1.12 Not Available Main - [facility] [address] [place] [address], [address] [place] [address] 02/16/2023 14:14:02/17/2002/16/2023 BMP, serum or plasm a CI- 99 Not Available Main - [facility] [address], [address] [place] [address] 02/16/2023 14:14:02/17/20 23 02/16/2023 BMP, serum or plasm a CRE 0.6 Not Available Main - [facility] [address], [address] [place] [address] 02/16/2023 14:14:02/17/20 23 02/16/2023 BMP, serum or plasm a GLU 315 Not Available [facility] - [facility] [address], [address] [place] [address] 02/16/2023 14:14:02/17/20 23 02/16/2023 BMP, serum or plasm a K+ 4.2 Not Available Main - [facility] [address], [address] [place] [address] 02/16/2023 14:14:02/17/2002/16/2023 BMP, serum or plasm a Na+ 137 Not Available [facility] - [facility] [address], [address] [place] [address] 02/16/2023 14:14:02/17/2002/16/2023 BMP, serum or plasm a tCO2 25 Not Available Main - [facility] [address], [address] [place] [address] 02/16/2023 14:14:02/17/20 23 02/16/2023 rapid flu (A+B) Flu negati ve Not Available [facility] - [facility] [address] [place] [address], [address] [place] [address] 02/16/2023 14:14:26 02/17/2002/16/2023 rapid SARS CoV 2 Ag, QL IA, respi rator y speci men rapid SARS CoV 2 Ag, QL IA, respiratory specimen negati ve Not Available Main - [facility] ed [address] [place] [address], [address] [place] [address] 02/16/2023 14:14:19 02/17/2002/16/2023 progr ess disch arge [...] Details Last Updated DateTime 3 98.5 [degF] 40076.8 g 14 /min 109 /min 98 % 109 /min 98 % 54233.8 g 98.5 [degF] 14 /min 115/69 mm[Hg] [...] 3 100.2 [degF] 134 /min 18 /min 22698.8 8 g 96 % 124/76 mm[Hg] Not Available [facility] - production 3 11:57:39 Date Recorded Body temperature Oxygen saturation Heart rate Respiratory rate Body weight Systolic And Diastolic Provider Name and Address Organization Details Last Updated DateTime 3 98.4 [degF] 100 % 100 /min 16 /min 63543.9 6 g 128/79 mm[Hg] Not Available [facility] [...] [id number] Arnie Jeff MD Main - [facility] [address] [place] [phone] 12/18/2022 13:25:06 12/23/2022 10:41:37 Hyperglycemia 95702722 R73.9 [id number] Natalie Aiken MD Main - [facility] [address] [place] [phone] 02/02/2023 11:57:37 02/02/2023 19:18:19 Abdominal pain 36977827 R10.9 Fever 577153552 R50.9 [id number] Teetee Jacob MD Main - [facility] [address] [place] [phone] 02/16/2023 12:16:37 02/17/2023 10:23:13 Altered mental status 634916358 R41.82 ? hepatic encephalop athy with abdominal [...] treatment. Patient is agreeable. Report called to [facility] ER expect line- informed of H & P-labs/ neg covid and flu [id number] LESLEE ESPOSITO MD Main - [facility] [address] [place] [phone] 01/28/2025 19:45:37 01/30/2025 19:50:37 History of fall [id number] Z91.81 [id number] Evaluation in the field was performed by my weight and balance control agent colleague, as noted above, I provided real-time [...] The nephew, serving as the HCP and DIABETES SOLUTIONS SPECIALIST, has been instructed on observatio n protocols. [...] Kumar Member ID Guarantor Name 02/02/2023 1 [facility] - DOS PRIOR TO 2022 - DUAL ELIGIBLE (MEDICARE REPLACEMENT/ADV ANTAGE - HMO) Kole Paz [id number] Kole Paz 01/28/2025 1 [facility] - DOS ON OR AFTER 2022 - DUAL ELIGIBLE - LONG-TERM OPTIONS AND ONE CARE (MEDICARE REPLACEMENT/ADV ANTAGE - HMO) Kole Paz [id number] Kole Paz Notes Date Note Type Note Provider Name and Address Organization Details Recorded Time 12/18/2022 text/html [facility] Nursing Assessment: Reason For Request: DIABETES SOLUTIONS SPECIALIST reporting pt's sugar is high. DIABETES SOLUTIONS SPECIALIST reporting pt is stating pain in his left hip. DIABETES SOLUTIONS SPECIALIST states a visiting nurse visits the pt every Thursday to change out the members meds with equipment. Sugar yesterday was 344> todays reading is 310. DIABETES SOLUTIONS SPECIALIST reports pt has been eating and drinking fluids but that he is just wanting to sit on his recliner and sleep. Chief Complaints: Diabetes Related, Weakness/Lethargy PMH: Diabetes Allergies: No Known Pain Assessment: Level 8 out of 10 Comments: Called with manager statistical programming DIABETES SOLUTIONS SPECIALIST stated that member fell in August and [...] identity by MARLEE Jeff MD [address], [place], [phone], [employer] 12/18/2022 14:12:16 02/02/2023 text/html CRC Nursing Assessment: Chief Complaints: Nausea/Vomiting PMH: Diabetes, Hypertension Allergies: No Known Comments: DIABETES SOLUTIONS SPECIALIST calling on behalf of member with complaints of nausea/vomiting x 2 days. fever/chills resolved. No OTC's FS -252 Discuss if symptoms progress to seek emergent care-verbalize understanding. via [place] int. # [id number] Verify name/- Natalie Aiken MD [address], [place], [phone], [employer] 02/02/2023 12:01:01 02/16/2023 text/html ROS as noted in the HPI CRC Nursing Assessment: Reason For Request: Weakness/ N/v Patient Reports: Nausea with or without vomiting; Inability to tolerate foods, fluids or daily medicationsDenies: Vague abdominal pain greater than 24 hours Chief Complaints: Weakness/Lethargy, Nausea/VomitingPMH: Diabetes, HypertensionAllergi es: UnknownComments: DIABETES SOLUTIONS SPECIALIST calling for member with N/v/ and dizziness since last . Member feeling warm, no temp and no chills. Member has not been eating much. DIABETES SOLUTIONS SPECIALIST is unsure if he has had a BM . PEr DIABETES SOLUTIONS SPECIALIST he looks yellow and had sx on his liver february 09 Member c/o SOB Verified identity by ................... ................... ................... ................... ................... ................... ................... ........ Administrative Operations Coordinator Note From Calderon Still: PATIENT REQUESTING VISIT DUE TO N/V WEAKNESS. UPON ARRIVAL PT FOUND LAYING DOWN IN BED WITH DIABETES SOLUTIONS SPECIALIST IN THE HOME. DIABETES SOLUTIONS SPECIALIST WAS ON THE PHONE WITH FAMILY WHO [...] TO DRAW BLOOD. POC BLOODWORK SUBMITTED TO [facility], SEE ATTACHED. [facility] CONTACTED, [facility] ASKED FOR ORTHO VITAL SIGNS, NO MAJOR CHANGES IN VITALS BETWEEN LAYING DOWN, SITTING AND STANDING. [facility] RECOMMENDS TRANSPORT TO THE HOSPITAL. 911 CALLED, [facility] ARRIVED ON SCENE, CARE AND REPORT GIVEN TO [facility], NO ALS INTERVENTIONS INDICATED FOR TRANSPORT, PT TRANSPORTED BLS. ................... ................... ................... ................... ................... ................... ................... ........ Disposition: FulfilledSEGMD: As above- patient has no d/c summary from recent hospitalization-uns ure of what procedure performed- was sent to the ED by our team with fever/ weakness/n/v 02/02/23; d/c 02/09/23- no real vomiting per care professionals- just not eating or drinking- unsure of last BM- DIABETES SOLUTIONS SPECIALIST has not seen any and patient cannot remember. Teetee Jacob MD [address] [place] [address],[address], [place], [phone], [employer] [place] 02/16/2023 15:16:05 01/28/2025 text/html ROS as noted in the [facility] CRC Nurse Triage Notes (Bob rFancisco): Reason For Request: fallDenies: Falls with head [...] ................... ................... ................... ................... ................... ................... ........ Administrative Operations Coordinator Note From Eris Guerrero: This visit is [...] ................... ................... ................... ................... ................... ................... ........ [facility] Consulted: Leslee Esposito ................... ................... ................... ................... ................... ................... ................... ........ Disposition: Fulfilled LESLEE ESPOSITO MD [address] [facility],[address], [place], [phone], JOSELO DE LA TORRE 01/28/2025 20:38:45
[2025-08-18 23:45] VITALS: BP 131/78; PULSE 83; RESP 16; TEMP 36.5; O2SAT 97
[2025-08-19 00:21] VITALS: BP 131/78; PULSE 83; RESP 16; TEMP 36.5; O2SAT 97
== END 2025-08-19 00:25 | disposition home or self-care (01) ==
PROVIDERS: Emergency Provider Emergency Medicine Emergency Medical Services
DX: S09.90XA Unspecified injury of head, initial encounter (principal); W01.190A Fall on same level from slipping, tripping and stumbling with subsequent striking against furniture, initial encounter; Y93.89 Activity, other specified; Y92.009 Unspecified place in unspecified non-institutional (private) residence as the place of occurrence of the external cause; Y99.9 Unspecified external cause status
CPT/HCPCS: 70450; 72125; 99284

== ENCOUNTER → 2025-08-18 19:59 | Outpatient (BNV) | payer OTHER, SELFPAY | PROVIDERS: Emergency Provider Emergency Medicine Emergency Medical Services; Visit Provider Radiology Diagnostic Radiology | DX: M54.2 Cervicalgia (principal); S09.90XA Unspecified injury of head, initial encounter | CPT/HCPCS: 70450; 72125 ==